=== PATIENT | female | born 1950 | race Two or more races ===

== ENCOUNTER 2018-03-09 07:00 | Day surgery (SDC) | payer MEDICARE, MEDICAID ==
[~2018-03-09] VITALS: Ht 157.5 cm; Wt 49.4 kg
[~2018-03-09 07:00] MED LIST: ASPI-1159 PO; ATOR20TA PO; BENA20TA3 PO; FERR-63 PO; GLIP10TA10 PO; LEVO25TA7 PO; METF850T2 PO; RANI150C12 PO; SITA100T11 PO; benazepril PO
[2018-03-09] MEDS ORDERED: TICA90TA PO (08:23)
[2018-03-09] MEDS ORDERED: LISI2.5T47 PO (08:23)
[2018-03-09] MEDS ORDERED: VIT1CAPS5 PO (08:23)
[2018-03-09] MEDS ORDERED: DIFL5DRO RIGHTEYE (08:23)
[2018-03-09] MEDS ORDERED: TIMO15DR12 RIGHTEYE (08:23)
[2018-03-09] MEDS ORDERED: CARB15DR3 OP (08:23)
[2018-03-09] MEDS ORDERED: DEXT15DR5 RIGHTEYE (08:23)
[2018-03-09] MEDS ORDERED: FAMC250T2 PO (08:23)
[2018-03-09] MEDS ORDERED: FURO40TA5 PO (08:23)
[2018-03-09] MEDS ORDERED: LEVO50TA8 PO (08:23)
[2018-03-09] MEDS ORDERED: CARV6.2548 PO (08:23)
[2018-03-09] MEDS ORDERED: FISH1CAP65 PO (08:23)
[2018-03-09] MEDS ORDERED: ATOR40TA70 PO (08:23)
[2018-03-09] MEDS ORDERED: LIDOCAINE HCL/PF 1% 10 MG/ML 5ML VIAL ONE ×2 (08:25→09:59)
[2018-03-09] MEDS ORDERED: IODIXANOL 320MG/ML 100 ML BOTTLE IV ONE (08:25)
[2018-03-09 08:48] LABS: BASOPHILS % 0.5 % (0.0-2.0); EOSINOPHILS % 5.3 % (0.0-5.0); HEMATOCRIT. 30.2 % (36.0-48.0); HEMOGLOBIN. 9.5 g/dL (12.0-16.0); LYMPHOCYTES % 24.1 % (20.0-50.0); MEAN CORPUSCULAR HEMOGLOBIN 21.2 pg (28.0-32.0); MEAN CORPUSCULAR VOLUME 67.1 fL (81.0-99.0); MEAN PLATELET VOLUME 8.1 fl (7.4-10.4); MONOCYTES % 8.2 % (2.0-8.0); NEUTROPHILS % 61.9 % (40.0-76.0); PLATELET 224 x1000/uL (130-400); RED BLOOD CELL COUNT 4.49 mill/uL (4.2-5.4); RED CELL DISTRIBUTION WIDTH 14.7 % (11.6-14.6)
[2018-03-09 08:53] LABS: CHLORIDE 98 mEq/L (98-107)
[2018-03-09] MEDS ORDERED: FENTANYL CITRATE/PF 50MCG/ML 2ML VIAL ONE (09:46)
[2018-03-09] MEDS ORDERED: MIDAZOLAM HCL 2 MG/2 ML VIAL ONE (09:46)
[2018-03-09] MEDS ORDERED: ACETAMINOPHEN 325MG TABLET PO PRN (10:45)
[2018-03-09] MEDS ORDERED: ATROPINE SULFATE 1MG/10ML SYR IV PRN (10:45)
[2018-03-09] MEDS ORDERED: ONDANSETRON HCL 4MG/2ML VIAL IV PRN (10:45)
[2018-03-09 12:37] LABS: PLATELET ESTIMATE NORMAL
== END 2018-03-09 16:15 | disposition home or self-care (01) ==
LOC: CCL 07:00
PROVIDERS: ATTEND Specialist
DX: T82.855A Stenosis of coronary artery stent, initial encounter (principal); I25.118 Atherosclerotic heart disease of native coronary artery with other forms of angina pectoris; E78.4 Other hyperlipidemia; E11.9 Type 2 diabetes mellitus without complications; E03.8 Other specified hypothyroidism; I42.8 Other cardiomyopathies; Z79.82 Long term (current) use of aspirin; K21.9 Gastro-esophageal reflux disease without esophagitis; Z79.899 Other long term (current) drug therapy; Z95.0 Presence of cardiac pacemaker; Y83.1 Surgical operation with implant of artificial internal device as the cause of abnormal reaction of the patient, or of later complication, without mention of misadventure at the time of the procedure; I49.5 Sick sinus syndrome; I11.9 Hypertensive heart disease without heart failure
CPT/HCPCS: 36415; 80048; 82962; 85025; 93458; 99152; C1760; C1769; C1887; C1893; J1644; J2250; J3010; J3490; Q9967